=== PATIENT | female | born 1955 | race Caucasian/White ===

== ENCOUNTER 2022-11-12 16:01 | Emergency (ER) | payer BC, OTHER ==
[~2022-11-12] VITALS: Ht 165.1 cm; Wt 74.8 kg
[~2022-11-12 16:01] MED LIST: advil; excedrin
--- NOTE | 2022-11-12 16:16 | NUR ---
Pt triaged and placed in the waiting room. A/O and ambulatory, v/s stable.
[2022-11-12 16:17] VITALS: BP_SYST 142
--- NOTE | 2022-11-12 16:20 | NUR ---
Pt walked in to ER with c/o right knee pain and swelling x1 month, pt states pain became worse today, 01/20. Pt ambulatory, v/s stable.
--- NOTE | 2022-11-12 16:23 | NUR ---
Dr. De La Cruz to waiting room to see patient.
[2022-11-12 17:29] LABS: BASOPHILS # (AUTO) 0.1 K/uL (0.0-0.2); BASOPHILS % (AUTO) 0.9 % (0.0-2.0); EOSINOPHILS # (AUTO) 0.1 K/uL (0.0-0.4); EOSINOPHILS % (AUTO) 1.7 % (0.0-4.0); HEMATOCRIT 43.3 % (36-48); HEMOGLOBIN 14.6 g/dL (12.0-16.0); LYMPHOCYTES # (AUTO) 2.6 K/uL (1.0-5.5); LYMPHOCYTES % (AUTO) 35.2 % (20.5-51.5); MEAN CORPUSCULAR HEMOGLOBIN 30 pg (27-31); MEAN CORPUSCULAR HGB CONC 34 % (32-36); MEAN CORPUSCULAR VOLUME 89 fL (79.0-98.0); MONOCYTES # (AUTO) 0.5 K/uL (0.0-1.0); MONOCYTES % (AUTO) 7.3 % (1.7-9.3); NEUTROPHILS # (AUTO) 4.1 K/uL (1.8-7.7); NEUTROPHILS % (AUTO) 54.9 % (40.0-70.0); PLATELET COUNT (AUTO) 298 K/uL (130-430); RED BLOOD CELL COUNT(AUTO) 4.87 MIL/uL (4.2-6.2); RED CELL DISTRIBUTION WIDTH 13.7 % (9.0-15.0); WHITE BLOOD COUNT (AUTO) 7.4 K/uL (4.8-10.8)
[2022-11-12 17:32] LABS: ERYTHROCYTE SEDIMENTATION RATE 19 MM/HR (0-20)
[2022-11-12 17:41] LABS: ALANINE AMINOTRANSFERASE 22 U/L (12-78); ALBUMIN 3.8 g/dL (3.4-4.8); ANION GAP 11 (5-15); ASPARTATE AMINOTRANSFERASE 12 U/L (10-37); CALCIUM 8.8 mg/dL (8.4-11.0); CHLORIDE 102 mmol/L (98-107); CREATININE 0.66 mg/dL (0.55-1.30); GFR AFRICAN AMERICAN 115 mL/min (>90); GLUCOSE 101 mg/dL (70-99); TOTAL BILIRUBIN 0.2 mg/dL (0.0-1.0); UREA NITROGEN, BLOOD 19 mg/dL (8-21); URIC ACID 3.9 mg/dL (2.4-7.0)
[2022-11-12 17:46] LABS: C-REACTIVE PROTEIN QUANT < 0.2 mg/dL (0-0.5)
[2022-11-12] MEDS ORDERED: IBUP-1969 PO (17:55)
[2022-11-12] MEDS ORDERED: TRAM50TA2 PO (17:55)
--- NOTE | 2022-11-12 18:00 | NUR ---
Knee immobilizer placed on patient, pt declined crutches, stated "they will just make me fall".
[2022-11-12 18:32] VITALS: BP_SYST 142
--- NOTE | 2022-11-12 18:34 | NUR ---
Patient given written and verbal discharge instructions and verbalizes understanding. ER MD discussed with patient the results and treatment provided. Patient in stable condition. ID arm band removed. Rx of Tramadol and motrin given. Patient educated on pain management and to follow up with PMD. Pain Scale 0. Opportunity for questions provided and answered. Medication side effect fact sheet provided.
== END 2022-11-12 18:34 | disposition home or self-care (01) ==
LOC: SED 16:01
DX: M25.561 Pain in right knee (principal); Z79.899 Other long term (current) drug therapy
CPT/HCPCS: 36415; 73564; 80053; 84550; 85025; 85651-TC; 86140; 99284